=== PATIENT | female | born 1930 | race Caucasian/White ===

== ENCOUNTER 2017-03-20 11:56 | Observation (INO) | payer OTHER ==
[2017-03-20 12:01] VITALS: BMI 25.2
--- NOTE | 2017-03-20 12:31 | PDOC ---
History of Present Illness - General Chief Complaint: Chest Pain Stated Complaint: CHEST PAIN History Source: Patient, Family Exam Limitations: Language Barrier - History of Present Illness Initial Comments: 03/20/17 14:49 This is an 86 yo F with pmh of HTN, HLD, GERD, who presents due to chest pain. She has chronic epigastric burning pain from GERD relieved by ppi but over the past month she has had more frequent episodes and lately the pain moved to the chest wall. Today it is R sided but has been L sided previously. Her pail is elicited by emotional stress, She denies associated sob, cough, orthopnea, LOC, palpitations. She denies abd pain, n/v, diaphoresis, dysuria, diarrhe, constipation. She had no cardiac history. PCP Dr Gates Past History - Past Medical History Allergies/Adverse Reactions: Allergies Allergy/AdvReac Type Severity Reaction Status Date / Time iodine Allergy Verified 03/20/17 11:58 HTN: Yes Hypercholesterolemia: Yes Psychiatric Problems: Yes (DEPRESSION) Other medical history: LT EYE GLUCOMA - Surgical History Appendectomy: Yes - Psycho/Social/Smoking Cessation Hx Anxiety: No Suicidal Ideation: No Smoking History: Never smoked Have you smoked in the past 12 months: No Information on smoking cessation initiated: No Hx Alcohol Use: No Drug/Substance Use Hx: No Substance Use Type: None Review of Systems - Review of Systems Able to Perform ROS?: Yes Is the patient limited [place] Citizen proficient: Yes Constitutional: No: Chills, Fever HEENTM: No: Nose Congestion, Throat Pain Respiratory: No: Cough, Orthopnea, Shortness of Breath, Hemoptysis Cardiac (ROS): Yes: Chest Pain. No: Irregular Heart Rate, Lightheadedness, Palpitations, Syncope ABD/GI: No: Abdominal Distended, Blood Streaked Bowels, Constipated, Diarrhea, Nausea, Vomiting, Abdominal cramping : No: Dysuria, Flank Pain Musculoskeletal: No: Back Pain, Joint Pain, Muscle Pain Integumentary: No: Dryness, Pruritus, Rash, Sweating Psychiatric: Yes: Anxiety, Emotional Problems Endocrine: No: Intolerance to Cold, Intolerance to Heat, Unexplained Weight Loss Hematologic/Lymphatic: No: Anemia, Blood Clots, Easy Bleeding, Easy Bruising All Other Systems: Reviewed and Negative *Physical Exam - Vital Signs Last Vital Signs Temp Pulse Resp BP Pulse Ox 98.0 F 93 H 18 124/70 100 03/20/17 11:58 03/20/17 11:58 03/20/17 11:58 03/20/17 11:58 03/20/17 11:58 - Physical Exam Comments: 03/20/17 14:55 GENERAL: NAD AAOx3 HEENT: PERRLA EOMI sclera anicteric, conjunctiva clear. CV: rrr s1s2 grade 3 systolic murmur no JVD, reproducible pain in chest wall by pressing PULM cta b/l GI: nondistended, soft, nontender, no mass, normoactive bowel sounds NEURO: CN grossly intact SKIN: no lesions 03/20/17 14:57 Heart Score/ECG Review - History History: Slightly suspicious - Electrocardiogram EKG: Normal - Age Age: >/= 65 - Risk Factors Risk Factors Heart Score: Yes Hx Hypercholesterolemia, Yes Hx Hypertension Based on the list above the patient has:: 1-2 risk factors - Troponin Troponin: >/=3x normal limit - Score Heart Score - Total: 5 #1 ECG reviewed & interpreted by me at: 02:35 (NS 86 normal axis, no st changes ) General ECG Interpretation: Sinus Rhythm, Normal Rate, Normal Intervals, No acute ischemic changes ED Treatment Course - LABORATORY CBC & Chemistry Diagram: 03/20/17 13:30 03/20/17 13:30 Medical Decision Making - Medical Decision Making 03/20/17 14:56 patient presents with clinical picture consistent with GERD and atypical, likely musculoskeletal chest pain, CXR, EKG unremarkable CBC unremarkable 03/20/17 14:57 Trop is elevated 0.59, heart score 5, cardiology consulted, secured entrance monitor ordered Obs in tele requested 03/20/17 14:59 ASA given *DC/Admit/Observation/Transfer Diagnosis at time of Disposition: Chest pain, HTN (hypertension), HLD (hyperlipidemia), GERD (gastroesophageal reflux disease) - Discharge Dispostion Admit: Yes
--- NOTE | 2017-03-20 13:37 | PDOC ---
Attending Attestation - Resident Resident Name: Sho Christian - ED Attending Attestation I have performed the following: I have examined & evaluated the patient, The case was reviewed & discussed with the resident, I agree w/resident's findings & plan, Exceptions are as noted - HPI HPI: 86 yo F presents with R upper chest pain since yesterday. Pain is intermittent, waxing and waning. Nonradiating. Denies recent cough, f/c, illness. No diaphoresis, pleuritic pain, N/V. - Physicial Exam PE: GENERAL: Awake, alert, and fully oriented, in no acute distress HEAD: No signs of trauma EYES: PERRLA, EOMI, sclera anicteric, conjunctiva clear ENT: Auricles normal inspection, hearing grossly normal, nares patent, oropharynx clear without exudates. Moist mucosa NECK: Normal ROM, supple, no lymphadenopathy, JVD, or masses LUNGS: Breath sounds equal, clear to auscultation bilaterally. No wheezes, and no crackles HEART: Regular rate and rhythm, normal S1 and S2, no murmurs, rubs or gallops. Pain reproducible to palpation of the R upper chest. ABDOMEN: Soft, nontender, normoactive bowel sounds. No guarding, no rebound. No masses EXTREMITIES: Normal range of motion, no edema. No clubbing or cyanosis. No cords, erythema, or tenderness NEUROLOGICAL: Cranial nerves II through XII grossly intact. Normal speech, normal gait SKIN: Warm, Dry, normal turgor, no rashes or lesions noted. - Medical Decision Making Pt found to have positive troponin. EKG with no acute findings. Will consult with cardiology and admit.
[2017-03-20 13:45] LABS: BASOPHIL 0.4 % (0-2.0); EOSINOPHIL 1.6 % (0-4.5); MCH 29.1 pg (25.7-33.7); MCHC 32.9 g/dl (32.0-36.0); MEAN CELL VOLUME 88.7 fl (80-96); MEAN PLT VOLUME 9.4 fl (7.5-11.1); NEUTROPHILS 60.2 % (42.8-82.8); PLATELET COUNT 206 K/MM3 (134-434); RDW 14.6 % (11.6-15.6); WHITE BLOOD COUNT 7.4 K/mm3 (4.0-10.0)
[2017-03-20 14:10] LABS: ALBUMIN 3.8 g/dl (3.4-5.0); BILIRUBIN,TOTAL 0.4 mg/dL (0.2-1.0); CALCIUM 10.4 mg/dL (8.5-10.1); COCKROFT - GAULT 33.4645; CREATININE 1.1 mg/dL (0.55-1.02); TOT PROT 7.2 g/dl (6.4-8.2)
[2017-03-20 14:41] LABS: TROPONIN I 0.59 ng/ml (0.00-0.05)
[2017-03-20] MEDS ORDERED: ASPIRIN 325 MG TABLET PO ONE (15:00)
[2017-03-20] MEDS ORDERED: ASPIRIN 325 MG TABLET ONE (15:18)
--- NOTE | 2017-03-20 15:22 | CON.CARD ---
Consult Consult Specialty:: [facility]iology [facility] Reason for Consultation:: Chest pain - History of Present Illness Chief Complaint: Chest pain History of Present Illness: This is an 86 yo F with pmh of HTN, HLD, GERD, who presents due to chest pain. She has chronic epigastric burning pain from GERD relieved by ppi but over the past month she has had more frequent episodes and lately the pain moved to her chest. Today it is R sided but has been L sided previously with reproducible component associated with palpitations. Her pain is elicited by emotional stress and denies associated sob, cough, orthopnea, near or true syncope. She denies abd pain, n/v, diaphoresis, dysuria, diarrhea, constipation. She had no cardiac history. PCP Dr Gates - History Source History Provided By: Family Member Limitations to Obtaining History: Language Barrier - Alcohol/Substance Use Hx Alcohol Use: No - Smoking History Smoking history: Never smoked Have you smoked in the past 12 months: No Home Medications - Allergies Allergies/Adverse Reactions: Allergies Allergy/AdvReac Type Severity Reaction Status Date / Time iodine Allergy Verified 03/20/17 11:58 - Home Medications Home Medications: Ambulatory Orders Amlodipine Besylate [Norvasc -] 10 mg PO DAILY 03/20/17 Atorvastatin Ca [Lipitor] 40 mg PO HS 03/20/17 Paroxetine HCl [Paxil -] 20 mg PO DAILY 03/20/17 Valsartan [Diovan] 320 mg PO DAILY 03/20/17 Review of Systems - Review of Systems Cardiovascular: reports: Chest Pain Vital Signs: Vital Signs Temperature 98.0 F 03/20/17 11:58 Pulse Rate 93 H 03/20/17 11:58 Respiratory Rate 18 03/20/17 11:58 Blood Pressure 124/70 03/20/17 11:58 O2 Sat by Pulse Oximetry (%) 100 03/20/17 11:58 Constitutional: Yes: No Distress, Calm Neck: Yes: Supple Respiratory: Yes: Regular, CTA Bilaterally, Other (Reproducible chest wall tenderness) Gastrointestinal: Yes: Normal Bowel Sounds, Soft Cardiovascular: Yes: Regular Rate and Rhythm JVD: No Carotid Bruit: No Heart Sounds: Yes: S1, S2 Murmur: Yes: Systolic Murmur, Grade 1 Edema: No - Other Data NSR @ 86 nonspec changes Ejection Fraction %: LVEF > or = 40 % Imaging - Results Chest X-ray: Report Reviewed (Right base subcentimeter nodule) Problem List - Problems (1) Chest pain Code(s): R07.9 - CHEST PAIN, UNSPECIFIED Qualifiers: Chest pain type: other chest pain Qualified Code(s): R07.89 - Other chest pain; R07.8 - Other chest pain (2) HLD (hyperlipidemia) Code(s): E78.5 - HYPERLIPIDEMIA, UNSPECIFIED Qualifiers: Hyperlipidemia type: pure hypercholesterolemia Qualified Code(s): E78.00 - Pure hypercholesterolemia, unspecified; E78.0 - Pure hypercholesterolemia (3) HTN (hypertension) Code(s): I10 - ESSENTIAL (PRIMARY) HYPERTENSION Qualifiers: Hypertension type: essential hypertension Qualified Code(s): I10 - Essential (primary) hypertension (4) Demand ischemia Code(s): I24.8 - OTHER FORMS OF ACUTE ISCHEMIC HEART DISEASE (5) Coronary artery disease Code(s): I25.10 - ATHSCL HEART DISEASE OF [place] CORONARY ARTERY W/O ANG PCTRS Qualifiers: Coronary Disease-Associated Artery/Lesion type: [place] artery [place] vs. transplanted heart: [place] heart Associated angina: with unspecified angina Qualified Code(s): I25.119 - Atherosclerotic heart disease of [place] coronary artery with unspecified angina pectoris Assessment/Plan 1. Atypical chest pain 2. CAD post demand ischemia 3. HTN/HCVD 4. Hyperlipidemia 5. CKD P:1. Cycle cardiac enzymes to document peak, check TSH, lipid panel 2. Echocardiogram to assess ventricular and valve fxn 3. Persantine myoview after trops peaked 4. Continue ASA 81 qd, Diovan HCT 320/25 qd, Norvasc 10 qd, Lipitor 40 qd, add Toprol XL 25 qd 5. Further recommendations to follow, thank you for consultative opportunity
[2017-03-20] MEDS ORDERED: ACETAMINOPHEN 325 MG TABLET (FP) PO PRN (16:04)
[2017-03-20] MEDS ORDERED: METOPROLOL SUCCINATE 25 MG TAB.SR.24H (FP) PO SCH (16:15)
[2017-03-20] MEDS ORDERED: METOPROLOL SUCCINATE 50 MG TAB.SR.24H (FP) ONE (16:24)
--- NOTE | 2017-03-20 16:40 | HP ---
CHIEF COMPLAINT: I have chest pain PCP: Dr. Gates Cardiology: Dr. Delacruz HISTORY OF PRESENT ILLNESS: 86 yo F with h/o HTN, HLD, and GERD presented to the ED with acute on chronic chest pain since yesterday. Patient accounts that she's been having chest pain chronically for years and she attributes the cause to GERD. What prompted her to visit the ED is the worsening in frequency and severity. The most recent chest pain was yesterday, while she's at rest, located in L sided chest, radiated to the R then upwards to R shoulder, non-reproducible, 10/10, burning like, lasted 1 hour and spontaneously resolved, not associated with shortness of breath, n/ or deep breath. She recalls that lying down in bed would maker her chest pain worse but it's never exertional. Her last stress test was years ago and negative. Patient denies n/v, fever, chills, focal weakness, headache, dizziness, palpitations. ER course was notable for: (1) Elevated BP, metoprolol 20mg PO given once (2) Elevated creatinine 1.1 and elevated first trop 0.59 (3) Received ASA 325mg PO once Recent Travel: Denies PAST MEDICAL HISTORY: HTN, HLD, and GERD Basal cell carcinoma PAST SURGICAL HISTORY: Remote history of hysterectomy Social History: Smoking: Denies Alcohol: Social Drugs: Denies Family History: Non-contributory Allergies iodine Allergy, rashes and hives (Verified 03/20/17 11:58) HOME MEDICATIONS: Home Medications Medication Instructions Recorded Amlodipine Besylate [Norvasc -] 10 mg PO DAILY 03/20/17 Atorvastatin Ca [Lipitor] 40 mg PO HS 03/20/17 Paroxetine HCl [Paxil -] 20 mg PO DAILY 03/20/17 Valsartan [Diovan] 320 mg PO DAILY 03/20/17 REVIEW OF SYSTEMS CONSTITUTIONAL: Absent: fever, chills, diaphoresis, generalized weakness, malaise, loss of appetite, weight change HEENT: Absent: rhinorrhea, nasal congestion, throat pain, throat swelling, difficulty swallowing, mouth swelling, ear pain, eye pain, visual changes CARDIOVASCULAR: chest pain, Absent: syncope, palpitations, irregular heart rate, lightheadedness, peripheral edema RESPIRATORY: Absent: cough, shortness of breath, dyspnea with exertion, orthopnea, wheezing, stridor, hemoptysis GASTROINTESTINAL: Absent: abdominal pain, abdominal distension, nausea, vomiting, diarrhea, constipation, melena, hematochezia GENITOURINARY: Absent: dysuria, frequency, urgency, hesitancy, hematuria, flank pain, genital pain MUSCULOSKELETAL: arthralgia Absent: myalgia, joint swelling, back pain, neck pain SKIN: Absent: rash, itching, pallor HEMATOLOGIC/IMMUNOLOGIC: Absent: easy bleeding, easy bruising, lymphadenopathy, frequent infections ENDOCRINE: Absent: unexplained weight gain, unexplained weight loss, heat intolerance, cold intolerance NEUROLOGIC: Absent: headache, focal weakness or paresthesias, dizziness, unsteady gait, seizure, mental status changes, bladder or bowel incontinence PSYCHIATRIC: Absent: anxiety, depression, suicidal or homicidal ideation, hallucinations. PHYSICAL EXAMINATION Last Vital Signs Temp Pulse Resp BP Pulse Ox 98.0 F 79 18 157/66 100 03/20/17 11:58 03/20/17 15:58 03/20/17 11:58 03/20/17 15:58 03/20/17 15:58 GENERAL: AAO x 3, pleasant in good spirits, no acute distress. HEAD: AT, NC EYES: L eye cataract, R pupil round and reactive to light, sclera anicteric, conjunctiva clear. EARS, NOSE, THROAT: oropharynx clear without exudates. Moist mucous membranes. NECK: enopathy, JVD, or masses. LUNGS: CTAB HEART: RRR, normal S1 and S2 ejection murmur, rub or gallop. ABDOMEN: Soft, nontender, not distended, normoactive bowel sounds, no guarding, no rebound, no rupal EXTREMITIES: No calf tenderness. No peripheral edema. NEUROLOGICAL: Cranial nerves II-XII intact. Normal speech. SKIN: Warm, dry, normal turgor, no rashes or lesions noted, normal capillary refill. CBCD WBC 7.4 K/mm3 (4.0-10.0) 03/20/17 13:30 RBC 4.35 M/mm3 (3.60-5.2) 03/20/17 13:30 Hgb 12.7 GM/dL (10.7-15.3) 03/20/17 13:30 Hct 38.6 % (32.4-45.2) 03/20/17 13:30 MCV 88.7 fl (80-96) 03/20/17 13:30 MCHC 32.9 g/dl (32.0-36.0) 03/20/17 13:30 RDW 14.6 % (11.6-15.6) 03/20/17 13:30 Plt Count 206 K/MM3 (134-434) 03/20/17 13:30 MPV 9.4 fl (7.5-11.1) 03/20/17 13:30 CMP Sodium 140 mmol/L (136-145) 03/20/17 13:30 Potassium 4.5 mmol/L (3.5-5.1) 03/20/17 13:30 Chloride 102 mmol/L (98-107) 03/20/17 13:30 Carbon Dioxide 26 mmol/L (21-32) 03/20/17 13:30 Anion Gap 12 (8-16) 03/20/17 13:30 BUN 30 mg/dL (7-18) H 03/20/17 13:30 Creatinine 1.1 mg/dL (0.55-1.02) H 03/20/17 13:30 Creat Clearance w eGFR 47.21 (>60) 03/20/17 13:30 Calcium 10.4 mg/dL (8.5-10.1) H 03/20/17 13:30 Total Bilirubin 0.4 mg/dL (0.2-1.0) 03/20/17 13:30 AST 27 U/L (15-37) 03/20/17 13:30 ALT 18 U/L (12-78) 03/20/17 13:30 Alkaline Phosphatase 62 U/L (45-117) 03/20/17 13:30 Total Protein 7.2 g/dl (6.4-8.2) 03/20/17 13:30 Albumin 3.8 g/dl (3.4-5.0) 03/20/17 13:30 IMAGING CXR on 03/20: subcentimeter R base nodule EKG on 03/20: NSR ASSESSMENT/PLAN: 86 yo F with h/o HTN, HLD, and GERD admitted for observation for chest pain r/o ACS. Atypical chest pain, cannot r/o ACS - GERD vs. unstable angina - Trend troponins - Cardiac monitoring - Repeat EKG in AM - ECHO - f/u on TSH and lipid profile and abd U/S - Cont. asa - Persantine stress test scheduled tomorrow Acute kidney injury on Chronic kidney disease, stage 3A - Unknown baseline - FeNa = 0.7% implies pre-renal HTN - Cont. norvasc and toprol xl HLD - Cont. lipitor GERD - Not on home PPI/H2 caleb - Start protonix 40mg daily FEN - No IVF - Normal lytes - Na controlled diet, NPO after midnight for stress test Prophylaxis - DVT: SCDs - GI: protonix Dispo - Observation Visit type - Emergency Visit Emergency Visit: Yes ED Registration Date: 03/20/17 Care time: The patient presented to the Emergency Department on the above date and was hospitalized for further evaluation of their emergent condition. - New Patient This patient is new to me today: Yes Date on this admission: 03/20/17 - Critical Care Critical Care patient: No
--- NOTE | 2017-03-20 16:57 | PN ---
Teaching Attending Note Name of Resident: Alex Salas ATTENDING PHYSICIAN STATEMENT I saw and evaluated the patient. I reviewed the resident's note and discussed the case with the resident. I agree with the resident's findings and plan as documented. SUBJECTIVE: This is an 86 year old woman with a history of HTN, hyperlipidemia, GERD, who presents to the ER complaining of chest pain. She has chronic chest pain that is attributed to GERD. Yesterday, the pain was more severe than usual. It was located in the left side of the chest and radiated across to the right and to the right shoulder. OBJECTIVE: Vital Signs Period Temp Pulse Resp BP Sys/Law Pulse Ox Last 24 Hr 98.0 F 79-93 18 124-157/66-70 100-100 HEART: S1 S2, RRR LUNGS: Clear ABDOMEN: Soft, non-tender, non-distended, normal BS EXTREMITIES: No edema ASSESSMENT AND PLAN: 1. Chest pain, possible demand ischemia - Observe on telemetry - Serial troponins - Continue aspirin, Lipitor - Toprol XL added - Echocardiogram - Cardiology consult appreciated - Plan for persantine stress test 2. HTN - Contiue Karla Paul 3. Hyperlipidemia - Continue Lipitor 4. GERD 5. Probable stage 3 CKD
[2017-03-20] MEDS ORDERED: PANTOPRAZOLE 40 MG TABLET (FP) ONE (18:37)
[2017-03-20] MEDS: PANTOPRAZOLE 40 MG TABLET (FP) PO SCH (18:51)
[2017-03-20] MEDS: ATORVASTATIN CA 40 MG TABLET (FP) PO SCH (21:23)
[2017-03-20] MEDS ORDERED: HEPARIN NA (PORCINE) 5,000 UNITS/ML 1ML VIAL IVPUSH PRN ×2 (21:54)
[2017-03-20] MEDS ORDERED: HEPARIN - 25,000 UNIT in SODIUM CHLORIDE 495 ML IV SCH (22:00)
--- NOTE | 2017-03-21 07:15 | PN ---
Progress Note (short form) - Note Progress Note: Chief Complaint: Events noted notes reviewed, denies any further chest pain, denies any dyspnea, Troponin I noted trending down History of Present Illness: Seen and examined on telemetry. Events noted notes reviewed, denies any further chest pain, denies any dyspnea, Troponin I noted trending down Considering patient's age, underlying CKD, absence of symptoms and Troponin I peaking plan to proceed with MPI study, and defer [facility] coronary angiography at this point Medications: Current Medications Acetaminophen (Tylenol -) 650 mg PO Q4H PRN PRN Reason: FEVER OR PAIN Amlodipine Besylate (Norvasc -) 10 mg PO DAILY [facility] Aspirin (Asa -) 81 mg PO DAILY [facility] Atorvastatin Calcium (Lipitor -) 40 mg PO HS [facility] Last Admin: 03/20/17 21:23 Dose: 40 mg Heparin Sodium (Porcine) (Heparin -) 1,000 unit IVPUSH PRN PRN PRN Reason: Heparin Heparin Sodium (Porcine) (Heparin -) 5,000 unit IVPUSH PRN PRN PRN Reason: Heparin Heparin Sodium (Porcine) 25, (000 unit/ Sodium Chloride) 500 mls @ 20 mls/hr IV TITR MARINA; 1,000 UNIT/HR PRN Reason: Protocol Last Admin: 03/20/17 22:56 Dose: 20 mls/hr Metoprolol Succinate (Toprol Xl -) 25 mg PO DAILY [facility] Last Admin: 03/20/17 16:27 Dose: 25 mg Pantoprazole Sodium (Protonix -) 40 mg PO DAILY [facility] Last Admin: 03/20/17 18:51 Dose: 40 mg Paroxetine HCl (Paxil -) 20 mg PO DAILY [facility] Valsartan (Diovan -) 160 mg PO DAILY [facility] Review of Systems Cardiovascular: As noted above Respiratory: denies: Cough or Sputum Production Gastrointestinal: denies: Nausea, Vomiting, Diarrhea, Constipation or Abdominal Discomfort Musculoskeletal: No Symptoms Reported Endocrine: No Symptoms Reported Vital Signs: Last Vital Signs Temp Pulse Resp BP Pulse Ox 98.0 F 65 18 141/72 99 03/21/17 05:52 03/21/17 05:52 03/21/17 05:52 03/21/17 05:52 03/21/17 02:59 Constitutional: No Distress, Calm Neck: Supple Respiratory: Clear to A&P Bilaterally Cardiovascular: S1 S2 Regular Rate and Rhythm [place] 1/6 [id number] Gastrointestinal: Soft Benign Normal Bowel Sounds Ext: No Edema Labs: CBC, BMP 03/20/17 13:30 CBC, BMP 03/20/17 13:30 Troponin, BNP 03/20/17 03/20/17 03/21/17 13:30 19:55 01:50 Troponin I 0.59 H 1.35 H* 1.20 H* Hepatic Panel Total Bilirubin 0.4 mg/dL (0.2-1.0) 03/20/17 13:30 AST 27 U/L (15-37) 03/20/17 13:30 ALT 18 U/L (12-78) 03/20/17 13:30 Alkaline Phosphatase 62 U/L (45-117) 03/20/17 13:30 Albumin 3.8 g/dl (3.4-5.0) 03/20/17 13:30 Assessment/Plan ASSESSMENT: 1. Chest pain Syndrome, CAD angina pectoris with demand ischemia/NSTEMI angina pectoris 2. Probabkle diastolic LV dysfunction with class 0-I NYHA classification Lv failure 3. HTN 4. Hyperlipidemia 5. CKD PLAN: 1. Continue ASA, add Plavix and D/C Heparin 2. Continue Toprol XL and titrate dosage 3. Continue Diovan 4. Continue Norvasc 5. Echocardiography to assess ventricular and valve function 6. Persantine MPI study to assess ischemic burden Kristine Carolina M.D.
[2017-03-21 09:32] LABS: THYROID STIMULATING HORMONE 1.8 uIU/ml (0.358-3.74)
[2017-03-21] MEDS: METOPROLOL SUCCINATE 50 MG TAB.SR.24H (FP) PO SCH (09:36)
[2017-03-21] MEDS: VALSARTAN 160 MG TABLET (UD) PO SCH (09:36)
[2017-03-21] MEDS: amLODIPine BESYLATE 10 MG TABLET (FP) PO SCH (09:36)
[2017-03-21] MEDS ORDERED: ASPIRIN 81 MG CHEWABLE TABLETS PO SCH (10:00)
[2017-03-21] MEDS ORDERED: DIPYRIDAMOLE STRESS TEST 32.9 MG in DEXTROSE 5%-WATER - 26.32 ML IVPB ONE (10:00)
[2017-03-21] MEDS ORDERED: CLOPIDOGREL BISULFATE 75 MG TABLET (FP) PO SCH (10:00)
--- NOTE | 2017-03-21 10:48 | EKG ---
Test Reason : Blood Pressure : / mmHG Vent. Rate : 064 BPM Atrial Rate : 064 BPM P-R Int : 120 ms QRS Dur : 086 ms QT Int : 410 ms P-R-T Axes : 011 046 045 degrees QTc Int : 422 ms NORMAL SINUS RHYTHM NORMAL ECG WHEN COMPARED WITH ECG OF 20-MAR-2017 12:04, NO SIGNIFICANT CHANGE WAS FOUND Confirmed by APOLLO SHAIKH MD ([id number]) on 03/21/2017 10:48:20 AM Referred By: LAVON PAULA Confirmed By:APOLLO SHAIKH MD
--- NOTE | 2017-03-21 10:53 | EKG ---
Test Reason : Blood Pressure : / mmHG Vent. Rate : 086 BPM Atrial Rate : 086 BPM P-R Int : 112 ms QRS Dur : 084 ms QT Int : 350 ms P-R-T Axes : 014 046 053 degrees QTc Int : 418 ms NORMAL SINUS RHYTHM NONSPECIFIC ST ABNORMALITY ABNORMAL ECG NO PREVIOUS ECGS AVAILABLE Confirmed by APOLLO SHAIKH MD ([id number]) on 03/21/2017 10:53:01 AM Referred By: Confirmed By:APOLLO SHAIKH MD
--- NOTE | 2017-03-21 11:53 | PN ---
Physical Exam: SUBJECTIVE: Patient has no complaint. No acute cardiac event noted. Per nurse, uneventful overnight. 2nd trop was elevated and patient received heparin gtt but it's discontinued this AM. OBJECTIVE: Vital Signs Period Temp Pulse Resp BP Sys/Law Pulse Ox Last 24 Hr 97.7 F-98.1 F 61-88 18-18 139-157/66-75 98-100 GENERAL: AAO x 3, pleasant in good spirits, no acute distress. HEAD: AT, NC EYES: L eye cataract, R pupil round and reactive to light, sclera anicteric, conjunctiva clear. EARS, NOSE, THROAT: oropharynx clear without exudates. Moist mucous membranes. NECK: enopathy, JVD, or masses. LUNGS: CTAB HEART: RRR, normal S1 and S2 ejection murmur, rub or gallop. ABDOMEN: Soft, nontender, not distended, normoactive bowel sounds, no guarding, no rebound, no rupal EXTREMITIES: No calf tenderness. No peripheral edema. NEUROLOGICAL: Cranial nerves II-XII intact. Normal speech. SKIN: Warm, dry, normal turgor, no rashes or lesions noted, normal capillary refill. Troponin, BNP 03/20/17 03/20/17 03/21/17 13:30 19:55 01:50 Troponin I 0.59 H 1.35 H* 1.20 H* Active Medications Generic Name Dose Route Start Last Admin Trade Name Freq PRN Reason Stop Dose Admin Acetaminophen 650 mg 03/20/17 16:04 Tylenol - PO Q4H PRN FEVER OR PAIN Amlodipine Besylate 10 mg 03/21/17 10:00 03/21/17 09:36 Norvasc - PO 10 mg DAILY MARINA Administration Aspirin 81 mg 03/21/17 10:00 Asa - PO DAILY MARINA Atorvastatin Calcium 40 mg 03/20/17 22:00 03/20/17 21:23 Lipitor - PO 40 mg HS MARINA Administration Clopidogrel Bisulfate 75 mg 03/21/17 10:00 03/21/17 09:36 Plavix - PO 75 mg DAILY MARINA Administration Metoprolol Succinate 50 mg 03/21/17 08:00 03/21/17 09:36 Toprol Xl - PO 50 mg DAILY MARINA Administration Pantoprazole Sodium 40 mg 03/20/17 18:15 03/20/17 18:51 Protonix - PO 40 mg DAILY MARINA Administration Paroxetine HCl 20 mg 03/21/17 10:00 Paxil - PO DAILY MARINA Valsartan 160 mg 03/21/17 10:00 03/21/17 09:36 Diovan - PO 160 mg DAILY MARINA Administration IMAGING Persantine stress test on 03/21: negative for ischemia ECHO on 03/21: normal EF, normal LVF, elevated systolic RV pressure, moderate . U/S abd on 03/20: dilated CBD CXR on 03/20: subcentimeter R base nodule EKG on 03/20: NSR ASSESSMENT/PLAN: 86 yo F with h/o HTN, HLD, and GERD admitted for observation for chest pain r/o ACS. Atypical chest pain - 2/2 poorly controlled GERD symptom - Negative stress test ruled out angina - Outpatient endoscopy Dilated common bile duct - Might be responsible for patient's chief complaint - MRCP Acute kidney injury on Chronic kidney disease, stage 3A - Resolved HTN - Cont. norvasc and toprol xl HLD - Cont. lipitor GERD - Not on home PPI/H2 caleb - On protonix 40mg daily FEN - No IVF - Normal lytes - Na controlled diet Prophylaxis - DVT: SCDs - GI: protonix Dispo - Awaiting MRCP Visit type - Emergency Visit Emergency Visit: No - New Patient This patient is new to me today: No - Critical Care Critical Care patient: No
[2017-03-21 12:47] LABS: CALCIUM 9.8 mg/dL (8.5-10.1); COCKROFT - GAULT 41.6245; CREATININE 0.9 mg/dL (0.55-1.02)
[2017-03-21] MEDS ORDERED: PARoxetine HCL 10 MG TABLET (FP) ONE (13:54)
[2017-03-21] MEDS: PANTOPRAZOLE 40 MG TABLET (FP) PO SCH (13:57)
[2017-03-21] MEDS: PARoxetine HCL 20 MG TABLET (FP) PO SCH (13:57)
--- NOTE | 2017-03-21 17:36 | PN ---
Teaching Attending Note Name of Resident: Alex Salas ATTENDING PHYSICIAN STATEMENT I saw and evaluated the patient. I reviewed the resident's note and discussed the case with the resident. I agree with the resident's findings and plan as documented. SUBJECTIVE:no repeated CP since admission. states she has this similar episode every month. has never been evaluated for GB pathology. denies CP, SOB,fever, chills, N/V/C/D OBJECTIVE: Last Vital Signs Temp Pulse Resp BP Pulse Ox 98.2 F 69 18 148/54 99 03/21/17 14:34 03/21/17 14:34 03/21/17 14:34 03/21/17 14:34 03/21/17 10:00 General NAD CV S1 S2 RRR no murmur/rub/gallop no Chest wall tenderness abdomen soft NT/ND negative deras sign. obese ASSESSMENT AND PLAN: 86yo F with PMH HTN, dyslipidemia and GERD presented to the ER with CP 1. Atypical CP- no events on bilingual medical receptionist. troponin peaked at 1.35. was on hep ggt and d/c. no repeated episodes of pain. NMST and echo WNL. no WMA or ischemia noted. on asa/plavix started by cardio. metoprolol increased to 50mg daily today. 2. Dilated CBD- may be etiology of pain. CBD 8mm and pancreatic 3mm. MRCP ordered. no signs of acute inflammation. afebrile and no leukocytosis. LFT WNL will consider GI eval pending result of MRCP 3. dyslipidemia- statin 4. d/c planning tomorrow pending result of MRCP. plan and care d/w family (son and daughter in law) present at bedside. all questions answered. agreed with plan.
[2017-03-21] MEDS: ATORVASTATIN CA 40 MG TABLET (FP) PO SCH (21:05)
[2017-03-22 07:11] LABS: CALCIUM 10.2 mg/dL (8.5-10.1); COCKROFT - GAULT 41.6245; CREATININE 0.9 mg/dL (0.55-1.02)
--- NOTE | 2017-03-22 08:50 | PN ---
Progress Note, Physician History of Present Illness: No further chest pain or dyspnea. Episode of PAF overnight, remains in NSR. - Current Medication List Current Medications: Active Medications Acetaminophen (Tylenol -) 650 mg PO Q4H PRN PRN Reason: FEVER OR PAIN Amlodipine Besylate (Norvasc -) 10 mg PO DAILY [facility] [place] Last Admin: 03/21/17 09:36 Dose: 10 mg Aspirin (Asa -) 81 mg PO DAILY [facility] [place] Last Admin: 03/21/17 13:57 Dose: 81 mg Atorvastatin Calcium (Lipitor -) 40 mg PO HS [facility] [place] Last Admin: 03/21/17 21:05 Dose: 40 mg Clopidogrel Bisulfate (Plavix -) 75 mg PO DAILY [facility] [place] Last Admin: 03/21/17 09:36 Dose: 75 mg Metoprolol Succinate (Toprol Xl -) 50 mg PO DAILY [facility] [place] Last Admin: 03/21/17 09:36 Dose: 50 mg Pantoprazole Sodium (Protonix -) 40 mg PO DAILY [facility] [place] Last Admin: 03/21/17 13:57 Dose: 40 mg Paroxetine HCl (Paxil -) 20 mg PO DAILY [facility] [place] Last Admin: 03/21/17 13:57 Dose: 20 mg Valsartan (Diovan -) 160 mg PO DAILY [facility] [place] Last Admin: 03/21/17 09:36 Dose: 160 mg - Objective Vital Signs: Vital Signs Temperature 97.8 F 03/22/17 06:00 Pulse Rate 56 L 03/22/17 06:00 Respiratory Rate 18 03/22/17 06:00 Blood Pressure 134/58 03/22/17 06:00 O2 Sat by Pulse Oximetry (%) 95 03/22/17 02:00 Constitutional: Yes: No Distress, Calm HENT: Yes: Pharyngeal Erythema Neck: Yes: Supple Cardiovascular: Yes: Regular Rate and Rhythm, Murmur (1/6 SM) Respiratory: Yes: Regular, CTA Bilaterally Gastrointestinal: Yes: Normal Bowel Sounds, Soft Edema: No Labs: CBC, BMP 03/22/17 05:48 - ....Imaging EKG: Report Reviewed (PAF 138 -> SB at 04:33) Problem List - Problems (1) Chest pain Code(s): R07.9 - CHEST PAIN, UNSPECIFIED Qualifiers: Chest pain type: other chest pain Qualified Code(s): R07.89 - Other chest pain; R07.8 - Other chest pain (2) HLD (hyperlipidemia) Code(s): E78.5 - HYPERLIPIDEMIA, UNSPECIFIED Qualifiers: Hyperlipidemia type: pure hypercholesterolemia Qualified Code(s): E78.00 - Pure hypercholesterolemia, unspecified; E78.0 - Pure hypercholesterolemia (3) HTN (hypertension) Code(s): I10 - ESSENTIAL (PRIMARY) HYPERTENSION Qualifiers: Hypertension type: essential hypertension Qualified Code(s): I10 - Essential (primary) hypertension (4) Demand ischemia Code(s): I24.8 - OTHER FORMS OF ACUTE ISCHEMIC HEART DISEASE (5) Coronary artery disease Code(s): I25.10 - ATHSCL HEART DISEASE OF [place] CORONARY ARTERY W/O ANG PCTRS Qualifiers: Coronary Disease-Associated Artery/Lesion type: [place] artery [place] vs. transplanted heart: [place] heart Associated angina: with unspecified angina Qualified Code(s): I25.119 - Atherosclerotic heart disease of [place] coronary artery with unspecified angina pectoris (6) Paroxysmal atrial fibrillation Code(s): I48.0 - PAROXYSMAL ATRIAL FIBRILLATION Assessment/Plan 03/21/2017 P-Myoview: No ischemia, LVEF 78% 03/21/2017 Echo: Normal LV size and fxn, mild LAE, mild TR, OR, RVSP 30-40 mmHg 1. Chest pain Syndrome, CAD angina pectoris post demand ischemia 2. 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 HTN 4. Hyperlipidemia 5. CKD 6. PAF->SR PLAN: 1. Change ASA 81 qd and Plavix 75 qd to Eliquis 2.5 bid (age>85, wt<60 kg) 2. Continue Toprol XL 50 qd 3. Continue Diovan 160 qd 4. Continue Norvasc 10 qd 5. D/c planning with f/u in office [phone]
[2017-03-22] MEDS ORDERED: PARoxetine HCL 10 MG TABLET (FP) ONE (09:43)
[2017-03-22] MEDS: PANTOPRAZOLE 40 MG TABLET (FP) PO SCH (09:46)
[2017-03-22] MEDS: METOPROLOL SUCCINATE 50 MG TAB.SR.24H (FP) PO SCH (09:46)
[2017-03-22] MEDS: VALSARTAN 160 MG TABLET (UD) PO SCH (09:46)
[2017-03-22] MEDS: amLODIPine BESYLATE 10 MG TABLET (FP) PO SCH (09:46)
[2017-03-22] MEDS: PARoxetine HCL 20 MG TABLET (FP) PO SCH (09:47)
[2017-03-22] MEDS ORDERED: APIXABAN 2.5 MG TABLET PO SCH (10:00)
[2017-03-22] MEDS ORDERED: APIXABAN 5 MG TABLET PO SCH (10:00)
--- NOTE | 2017-03-22 12:03 | PN ---
Teaching Attending Note Name of Resident: Alex Salas ATTENDING PHYSICIAN STATEMENT I saw and evaluated the patient. I reviewed the resident's note and discussed the case with the resident. I agree with the resident's findings and plan as documented. SUBJECTIVE:currently asymptomatic. denies CP, SOB,fever, chills, abdominal pain , N/V/C/D OBJECTIVE: Last Vital Signs Temp Pulse Resp BP Pulse Ox 97.8 F 56 L 18 134/58 95 03/22/17 06:00 03/22/17 06:00 03/22/17 06:00 03/22/17 06:00 03/22/17 02:00 General NAD CV S1 S2 RRR no murmur/rub/gallop no Chest wall tenderness abdomen soft NT/ND negative deras sign. obese ASSESSMENT AND PLAN: 86yo F with PMH HTN, dyslipidemia and GERD presented to the ER with CP 1. Atypical CP- no events on cardiac cath rn. troponin peaked at 1.35. NMST and echo WNL. no WMA or ischemia noted. on asa/plavix now switched to eliquis 2.5mg (adjusted for age). started by cardio. cont metoprolol and ARB. f/u cardio as outpatient 2. Dilated CBD- no recurrent abdominal pain. MRCP negative for CBD dilation or stone. since pt is not symptomatic and normal LFT can follow up with PMD if pain recurs. 3. dyslipidemia- statin 4. d/c home. case d/w son present at bedside. all questions answered. verbalized understanding and agreement with plan
[2017-03-22 12:04] VITALS: BP 115/60; PULSE 67; TEMP 98.2
--- NOTE | 2017-03-22 15:40 | DS ---
Physical Exam: SUBJECTIVE: Patient seen and examined at bedside. She has no complaint and no acute cardiac events noted on monitor overnight. OBJECTIVE: Vital Signs Period Temp Pulse Resp BP Sys/Law Pulse Ox Last 24 Hr 97.5 F-98.2 F 52-67 18-20 100-144/41-63 95-96 PHYSICAL EXAM GENERAL: AAO x 3, pleasant in good spirits, no acute distress. HEAD: AT, NC EYES: L eye cataract, R pupil round and reactive to light, sclera anicteric, conjunctiva clear. EARS, NOSE, THROAT: oropharynx clear without exudates. Moist mucous membranes. NECK: enopathy, JVD, or masses. LUNGS: CTAB HEART: RRR, normal S1 and S2 ejection murmur, rub or gallop. ABDOMEN: Soft, nontender, not distended, normoactive bowel sounds, no guarding, no rebound, no rupal EXTREMITIES: No calf tenderness. No peripheral edema. NEUROLOGICAL: Cranial nerves II-XII intact. Normal speech. SKIN: Warm, dry, normal turgor, no rashes or lesions noted, normal capillary refill. LABS Laboratory Results - last 24 hr 03/21/17 03/22/17 05:35 05:48 Sodium 139 Potassium 4.3 Chloride 104 Carbon Dioxide 27 D Anion Gap 8 BUN 22 H Creatinine 0.9 Random Glucose 109 H Calcium 10.2 H Triglycerides 53 Cholesterol 160 Total LDL Cholesterol 79 HDL Cholesterol 83 H HOSPITAL COURSE: Date of Admission:03/20/17 86 yo F with h/o HTN, HLD, and GERD admitted for observation for chest pain r/o ACS. During her hospital stay, she remained asymptomatic and chest pain free. Although her 2nd troponin was elevated but the 3rd one trended down and the subsequent stress test was negative. MRCP was also negative for any obstruction in CBD or cystic or bilary duct. She sustained mild acute kidney injury on chronic kidney disease in the begining of hospital stay but resolved later on. Her symptom was most likely due to uncontrolled GERD. She was discharged on appropriate medications and instructed to follow up with punch box tender and primary doctor within a week. Date of Discharge: 03/22/17 Minutes to complete discharge: 35 Discharge Summary Reason For Visit: CHEST PAIN Current Active Problems Chest pain (Acute) Coronary artery disease (Acute) Demand ischemia (Acute) GERD (gastroesophageal reflux disease) (Acute) HLD (hyperlipidemia) (Acute) HTN (hypertension) (Acute) Paroxysmal atrial fibrillation (Acute) - Instructions Diet, Activity, Other Instructions: Your home medications have changed. refer to medication list for these changes. You were worked up for your chest pain which has resolved. your stress test was normal. Ultrasound of your gallbladder was done as well which showed dilation of the common bile duct but on MRCP this was determined to be artifact. Follow up with your primary care doctor tomorrow as scheduled. Follow up with cardiology prior to your vacation. Information on the one you saw here has been provided If your symptoms return, come to the ER. Referrals: Raymond Gates MD [Primary Care Provider] - Curt Delacruz MD [Staff Physician] - Disposition: HOME - Home Medications Comprehensive Discharge Medication List: Ambulatory Orders Amlodipine Besylate [Norvasc -] 10 mg PO DAILY 03/20/17 Atorvastatin Ca [Lipitor] 40 mg PO HS 03/20/17 Paroxetine HCl [Paxil -] 20 mg PO DAILY 03/20/17 Apixaban [Eliquis -] 2.5 mg PO BID #60 tablet 03/22/17 Metoprolol Succinate [Toprol XL -] 50 mg PO DAILY #30 tab 03/22/17 Pantoprazole Sodium [Protonix -] 40 mg PO DAILY #14 tab 03/22/17 Valsartan [Diovan] 160 mg PO DAILY #30 tablet 03/22/17 This patient is new to me today: No Emergency Visit: No Critical Care patient: No - Discharge Referral Referred to [facility] Yes Physician Referral: Raymond Barrios MD ([facility])
== END 2017-03-22 13:25 | disposition home or self-care (01) ==
LOC: JER 11:56 → JERBED 15:00 → J4S 20:58
PROVIDERS: ADMIT Internal Medicine; ATTEND Internal Medicine
PROC: 3E033GC Introduction of Other Therapeutic Substance into Peripheral Vein, Percutaneous Approach (ICD-10-PCS; principal; 2017-03-20)
DX: R07.89 Other chest pain (principal); I24.8 Other forms of acute ischemic heart disease; I25.119 Atherosclerotic heart disease of native coronary artery with unspecified angina pectoris; I12.9 Hypertensive chronic kidney disease with stage 1 through stage 4 chronic kidney disease, or unspecified chronic kidney disease; I48.0 Paroxysmal atrial fibrillation; E78.5 Hyperlipidemia, unspecified; K21.9 Gastro-esophageal reflux disease without esophagitis; H40.9 Unspecified glaucoma; F32.9 Major depressive disorder, single episode, unspecified; N17.9 Acute kidney failure, unspecified; N18.3 Chronic kidney disease, stage 3 (moderate)
CPT/HCPCS: 36415; 71010-TC; 74181-TC; 76705-TC; 78452-TC; 80048; 80053; 80061; 82436; 82550; 82570; 83721; 83735; 84133; 84300; 84443; 84484; 85025; 85730; 93005; 93010; 93017; 93306-TC; 99285-25; A9502; G0378; J1245; J1644